=== PATIENT | male | born 1940 | race American Indian/Alaskan Native ===

== ENCOUNTER 2017-04-06 10:14 | Outpatient (CLI) | payer MEDICARE ==
--- NOTE | 2017-04-06 11:20 | XRay Report ---
XRAY LUMBAR SPINE THREE VIEWS: 04/06/17 10:14:00 CLINICAL: Right hip pain. FINDINGS: Levoscoliosis centered at L2-3. The spine is straight in the lateral view with loss of the normal lumbar lordosis. Grade I L1-2 right laterolisthesis. Disc space narrowing at all levels and more pronounced at L3-4 and L4-5. Large osteophytes at most levels. No fracture. No pars defects identified. The pedicles are intact except for the left L5 pedicle which is sclerotic. Normal soft tissues. IMPRESSION: Severe scoliosis and multilevel degenerative disc disease.Grade I L1-2 right laterolisthesis. Flexion and extension views and AP views with lateral side bending would be helpful to evaluate for instability.
--- NOTE | 2017-04-06 21:23 | XRay Report ---
FINAL REPORT EXAM: XR HIP 2-3V RT HISTORY: RIGHT HIP PAIN TECHNIQUE: AP pelvis and single view right hip were performed Comparison: None FINDINGS: Pelvic girdle is angulated significantly likely related to patient's lumbar degenerative disease. The pelvic ring cannot be assessed. There is mild bilateral hip joint space narrowing in the weight-bearing articular direction. There is no definite femoral neck fracture. Study is suboptimally exposed. SI joints are open. There is moderate fecal retention. IMPRESSION: No fracture or dislocation right hip. Mild degenerative joint space narrowing bilateral hips. Pelvic girdle/bony ring is incompletely assessed due to cephalad location of the pubic symphysis relative to the sacrum. This may be due to the degenerative disease and scoliosis of the lumbosacral spine. If assessment of the bony pelvic ring is desired, recommend cross-sectional imaging. Otherwise plane of imaging will need to be adjusted.
== END 2017-04-06 10:15 | disposition home or self-care (01) ==
LOC: SPVIMAG 10:14
PROVIDERS: ATTEND Orthopaedic Surgery Sports Medicine
DX: M41.86 Other forms of scoliosis, lumbar region (principal); M51.37 Other intervertebral disc degeneration, lumbosacral region; M25.551 Pain in right hip; K59.00 Constipation, unspecified
CPT/HCPCS: 72100